=== PATIENT | female | born 1985 | race Caucasian/White ===

== ENCOUNTER 2021-08-10 13:06 | Emergency (ER) | payer BC ==
[~2021-08-10] VITALS: Ht 162.6 cm; Wt 64.0 kg
[2021-08-10 13:10] VITALS: BP 125/67
--- NOTE | 2021-08-10 13:25 | NUR ---
BIB C/O VAGINAL BLEEDING, DIZZINESS, 2/10 LOWER ABDOMINAL PAIN, NECK PAIN X 2 WEEKS. DENIES TRAUMA. LMP 05/27/21, SPOTTING 07/12/21 3 DAYS. PMH: APPENDECTOMY
[2021-08-10 15:28] LABS: BASOPHILS # (AUTO) 0.1 K/uL (0.00-0.22); BASOPHILS % (AUTO) 0.8 % (0.0-2.0); EOSINOPHILS # (AUTO) 0.3 K/uL (0-0.4); EOSINOPHILS % (AUTO) 4.2 % (0.0-4.0); HEMATOCRIT 36.7 % (36-48); HEMOGLOBIN 12.4 g/dL (12.0-16.0); LYMPHOCYTES # (AUTO) 2.5 K/uL (2.5-16.5); LYMPHOCYTES % (AUTO) 35.7 % (20.5-51.1); MEAN CORPUSCULAR HEMOGLOBIN 32 pg (27-31); MEAN CORPUSCULAR HGB CONC 34 g/dL (33-37); MEAN CORPUSCULAR VOLUME 93.4 fL (80-94); MONOCYTES # (AUTO) 0.5 K/uL (0.8-1.0); MONOCYTES % (AUTO) 6.5 % (1.7-9.3); NEUTROPHILS # (AUTO) 3.7 K/uL (1.8-7.7); NEUTROPHILS % (AUTO) 52.8 % (42.2-75.2); PLATELET COUNT (AUTO) 320 K/uL (140-450); RED BLOOD CELL COUNT(AUTO) 3.93 MIL/uL (4.20-5.40); RED CELL DISTRIBUTION WIDTH 12.9 % (11.6-13.7)
[2021-08-10 16:16] LABS: ALBUMIN 3.6 g/dL (3.4-5.0); ANION GAP 11.4 (8-16); CARBON DIOXIDE 29.4 mmol/L (21-32); CREATININE 0.9 mg/dL (0.6-1.3); MAGNESIUM 1.9 mg/dL (1.8-2.4); POTASSIUM 3.8 mmol/L (3.5-5.1); TOTAL BILIRUBIN 0.2 mg/dL (0.0-1.0)
--- NOTE | 2021-08-10 17:35 | NUR ---
DR. KAMARA BEDSIDE SPEAKING WITH PATIENT
[2021-08-10 18:41] LABS: APPEARANCE,URINE SL CLOUDY (CLEAR); BILIRUBIN,URINE NEGATIVE (NEGATIVE); BLOOD, URINE 3+ (NEGATIVE); COLOR,URINE RED (YELLOW); LEUKOCYTE ESTERASE ,URINE NEGATIVE (NEGATIVE); NITRITE, URINE NEGATIVE (NEGATIVE); PH,URINE 7.5 (5.0-9.0); UGLUCOSE NEGATIVE (NEGATIVE)
[2021-08-10 19:09] LABS: RBC,URINE >100 /HPF (0-5); WBC,URINE 0-5 /HPF (0-5)
[2021-08-10 19:10] LABS: OTHER CASTS, URINE None Seen /LPF (None Seen)
--- NOTE | 2021-08-10 19:33 | NUR ---
Pt report given to IKE BOOTH. Transfer of care at this time.
[2021-08-10] MEDS ORDERED: MEDR10TA PO (21:13)
[2021-08-10 22:27] VITALS: BP 116/74
--- NOTE | 2021-08-10 22:27 | NUR ---
Patient discharged with v/s stable. Written and verbal after care instructions given and explained. Patient alert, oriented and verbalized understanding of instructions. Ambulatory with steady gait. All questions addressed prior to discharge. ID band removed. Patient advised to follow up with PMD. Rx of PROVERA given. Opportunity to ask questions provided and answered.
== END 2021-08-10 22:27 | disposition home or self-care (01) ==
LOC: MED 13:06
DX: N83.201 Unspecified ovarian cyst, right side (principal)
CPT/HCPCS: 36415; 76856; 80053; 81001; 81025; 83735; 84702; 85025; 93005; 99285; Q0092